=== PATIENT | male | born 2000 | race Caucasian/White ===

== ENCOUNTER 2019-01-04 13:29 | Emergency (ER) | payer OTHER, MEDICAID, SELFPAY ==
[2019-01-04 13:40] VITALS: BP 122/58; PULSE 74; RESP 13; TEMP 37.1; O2SAT 98
--- NOTE | 2019-01-04 13:51 | DI.RAD.S_ITS ---
PROCEDURE: XR CHEST 2V INDICATIONS: short of breath/chest pressure TECHNIQUE: 2 views of the chest were acquired. COMPARISON: None. FINDINGS: Surgical changes and devices: None. Lungs and pleura: Lungs are clear. No pleural effusions or pneumothorax. Mediastinum: Mediastinal contours are normal. Heart size is normal. Bones and chest wall: No suspicious bony abnormalities. Soft tissues appear unremarkable. IMPRESSION: No acute disease. Dictated by: Jose Nowak M.D. on 01/04/2019 at 14:28 Approved by: Jose Nowak M.D. on 01/04/2019 at 14:29
[2019-01-04 14:18] LABS: Influenza A and B by PCR Rapid Negative (Negative)
--- NOTE | 2019-01-04 14:18 | ED.URI ---
HPI - URI/Sore Throat General Chief Complaint: Upper Respiratory Symptoms Stated Complaint: CHEST PAIN COUGH Time Seen by Provider: 01/04/19 14:17 Source: patient Mode of arrival: Ambulatory Limitations: no limitations History of Present Illness HPI Narrative: This a 18-year-old male who comes in with complaint of chest pain and cough patient states that been going on for 2 or 3 weeks. He has noted he has had sort of decreased stamina as well when he skateboarding. And that sometimes when he is talking he feels sort of short of breath. Patient states it feels like bili sort of stuck in his chest like it went down did not quite make it all the way to his stomach he states he will notice heart rate seems to kind of go up until feel little short of breath with it. States it can last anywhere from 1-2 minutes to 10 minutes. States Thursday and sort of a much longer episode. He denies any clear exacerbating symptoms. He states that deep inhalation and deep rhythmic breathing seems to help. He has noticed that stretching before skateboarding, taking very deep breaths sometimes seems to make it worse. He denies syncope or lightheadedness, he has had a cough occasionally but nonproductive. Denies any nasal congestion or respiratory congestion. Denies any nausea, no vomiting. No diarrhea or constipation. No swelling in his lower extremities. States sometimes it kind of feels like it goes up towards his neck. States he did have an episode in 10th grade or he would have these episodes of difficulty breathing and would almost vomit but they felt a little bit different. He states that they resolved and they never found the exact cause. Denies other past medical history, denies any prior surgeries. Father and grandfather have had pancreatitis, no history of heart attacks, blood clots or similar type issues. No tobacco, he does tab marijuana, denies alcohol. Related Data Previous Rx's Medication Instructions Recorded gemfibrozil 600 mg PO BID #60 tab 01/04/19 Review of Systems Review of Systems ROS Unobtainable: All systems reviewed & are unremarkable except as noted in HPI and below Constitutional Constitutional: Denies chills, Reports fatigue, Denies fever(s), Denies lethargy and Denies weakness Cardiovascular Cardiovascular: Reports chest pain, Denies chest pain with activity, Denies diaphoresis, Denies syncope, Reports rapid heart rate, Denies edema, Denies irregular heart rhythm, Denies lightheadedness, Reports radiating jaw, neck or arm pain (Kind of to neck), Denies palpitations, Reports dyspnea, Denies dyspnea on exertion and Denies orthopnea Respiratory Respiratory: Denies change in phlegm color, Denies chest congestion, Reports cough, Denies hemoptysis, Denies excessive phlegm production, Denies pain on inspiration, Denies pain with cough, Reports dyspnea, Denies dyspnea on exertion, Denies stridor and Denies wheezing Gastrointestinal Gastrointestinal: Denies abdominal pain, Denies melena, Denies hematochezia, Denies change in bowel habits, Denies constipation, Denies diarrhea, Denies nausea and Denies vomiting Genitourinary Genitourinary: Denies hematuria, Denies difficulty urinating, Denies dysuria, Denies flank pain, Denies urinary frequency, Denies urinary incontinence and Denies urinary urgency Musculoskeletal Musculoskeletal: Denies back pain Integumentary/Breasts Skin/Breast: Denies rash Neurologic Neurologic: Denies syncope and Denies weakness Endocrine Endocrine: Reports fatigue and Denies palpitations Allergic/Immunologic Allergic/Immunologic: Denies wheezing PFSH Social History Smoking Status: Never smoker Family History (Updated 01/04/19 @ 14:38 by Beverly Price DO) Father Pancreatitis Grandfather Pancreatitis Social History (Updated 01/04/19 @ 14:38 by Beverly Price DO) Smoking Status: Never smoker alcohol intake: current substance use type: marijuana Exam Narrative Exam Narrative: GEN: well nourished, moderately obese male, alert and oriented x 3, patient appears to be in no acute distress. HEENT: Atraumatic, pupils are equal round reactive to light, extraocular movements are intact, nares are clear, TMs are clear with no fluid, there is no conjunctival pallor. Throat is clear without any exudates, erythema, tonsillar enlargement or uvular deviation HEART: Regular rate and rhythm without murmur, clicks, rubs. LUNGS:Lungs clear to auscultation, no wheezes, rales, crackles, chest moves symmetrically, no tachypnea, no accessory muscle use. ABD:bowel sounds normal, soft, non-tender, no guarding, rebound, rigidity, no masses noted, no hepatosplenomegaly, no pulsatile mass. MSCL: Non-tender, no muscle atrophy, muscles strength 5/5 upper and lower extremities, full range of motion, normal gait NEURO:CN 2-12 intact, sensation normal SKIN: no rash or skin changes, noted. Initial Vital Signs Initial Vital Signs: Vital Signs Temperature 98.7 F 01/04/19 13:40 Pulse Rate 74 01/04/19 13:40 Respiratory Rate 13 01/04/19 13:40 Blood Pressure 122/58 L 01/04/19 13:40 Pulse Oximetry 98 01/04/19 13:40 Scores HEART Score Heart Score history: Slightly Suspicious Heart Score EKG: Non-Specific repolarization disturbance Heart Score Age: < 45 years old Heart Score risk factors: No known risk factors PERC Score Age greater than or equal to 50 years: No Heart rate greater than or equal to 100 bpm: No Room Air O2 Sat less than 95%: No Unilateral leg swelling: No Recent trauma or surgery: No Hemoptysis: No Prior PE or DVT: No Hormone Use: No Total PERC Score: 0 Course Orders Ordered: ED Orders 01/04/19 13:51 Chest [XR chest 2V] Stat 01/04/19 13:55 Influenza A and B by PCR Rapid Stat 01/04/19 13:59 EKG-12 Lead Stat 01/04/19 14:59 Complete Blood Count AUTO DIFF Stat Comprehensive Metabolic Panel Stat D Dimer Stat Lipase Stat Lipid Panel Stat Partial Thromboplastin Time Stat Prothrombin Time INR Stat Troponin & CK Cardiac Panel Stat 01/04/19 15:10 Urine Drug Screen, Rapid Stat Urine Microscopic Stat Vital Signs Vital signs: Vital Signs - 8 hr 01/04/19 13:40 01/04/19 15:38 01/04/19 17:11 Temperature 98.7 F Pulse Rate 74 79 74 Respiratory Rate 13 16 14 Blood Pressure 122/58 L Blood Pressure [Left Arm] 125/73 130/64 Pulse Oximetry 98 100 100 MDM - URI/Sore Throat Lab Data Attestation: I reviewed the patient's lab results. Result diagrams: 01/04/19 14:59 01/04/19 14:59 Labs: Lab Results 01/04/19 01/04/19 01/04/19 Range/Units 13:55 14:59 14:59 WBC 9.1 (4.5-11.0) X10^3/uL RBC 5.33 (4.5-5.9) X10^6/uL Hgb 15.8 (13.5-17.5) g/dL Hct 45.2 (41-53) % MCV 84.9 (80-100) fL MCH 29.6 (26-34) PG MCHC 34.8 (30-36) % RDW 13.3 (11.6-14.8) % Plt Count 307 (150-400) X10^3/uL Neut % (Auto) 57.2 (50-75) % Lymph % (Auto) 32.9 (25-40) % [place] % (Auto) 7.5 (3-14) % Eos % (Auto) 2.0 (2-4) % Baso % (Auto) 0.4 (0-2) % Neut # (Auto) 5200 (6362-2549) /uL Lymph # (Auto) 3000 (9542-0512) /uL [place] # (Auto) 700 (0-900) /uL Eos # (Auto) 200 (0-450) /uL Baso # (Auto) 0 (0-100) /uL PT 11.4 (10.1-12.7) SECONDS INR 1.0 (0.9-1.3) APTT 33 (26.4-36.2) SECONDS D-Dimer TNP Sodium (137-145) mmol/L Potassium (3.4-5.1) mmol/L Chloride (98-107) mmol/L Carbon Dioxide (22-32) mmol/L BUN (9-20) mg/dL Creatinine (0.66-1.25) mg/dL Estimated GFR (>60) mL/min BUN/Creatinine Ratio (6-22) Glucose (70-100) mg/dL Calcium (8.4-10.2) mg/dL Total Bilirubin (0.2-1.3) mg/dL AST (17-59) IU/L ALT (21-72) IU/L Alkaline Phosphatase (38-126) U/L Total Creatine Kinase (55-170) U/L CK-MB (CK-2) CK-MB (CK-2) Rel Index Troponin I (0.01-0.034) ng/mL Total Protein (6.3-8.2) g/dL Albumin (3.5-5.0) g/dL Globulin (1.7-4.1) g/dL Albumin/Globulin Ratio (1.0-2.8) Triglycerides (35-150) mg/dL Cholesterol LDL Cholesterol, Calc HDL Cholesterol (40-60) mg/dL Lipase (23-300) U/L Urine RBC (0-5/HPF) Urine WBC (0-5/HPF) Ur Squamous Epith Cells (0-5/HPF) Amorphous Sediment Urine Bacteria (None) Ur Culture Indicated? U Morph 300 ng/mL cutoff (Negative) Ur Oxycodone Screen (Negative) Urine Methadone Screen (Negative) Ur Barbiturates Screen (Negative) U Tricyclic Antidepress (Negative) Ur Phencyclidine Scrn (Negative) Ur Amphetamines Screen (Negative) U Methamphetamines Scrn (Negative) Ur MDMA Scrn (Ecstasy) (Negative) U Benzodiazepines Scrn (Negative) Urine Cocaine Screen (Negative) U Marijuana (THC) Screen (Negative) Influenza A & B (PCR) Negative (Negative) 01/04/19 01/04/19 01/04/19 Range/Units 14:59 14:59 14:59 WBC (4.5-11.0) X10^3/uL RBC (4.5-5.9) X10^6/uL Hgb (13.5-17.5) g/dL Hct (41-53) % MCV (80-100) fL MCH (26-34) PG MCHC (30-36) % RDW (11.6-14.8) % Plt Count (150-400) X10^3/uL Neut % (Auto) (50-75) % Lymph % (Auto) (25-40) % [place] % (Auto) (3-14) % Eos % (Auto) (2-4) % Baso % (Auto) (0-2) % Neut # (Auto) (4486-0264) /uL Lymph # (Auto) (3988-0358) /uL [place] # (Auto) (0-900) /uL Eos # (Auto) (0-450) /uL Baso # (Auto) (0-100) /uL PT (10.1-12.7) SECONDS INR (0.9-1.3) APTT (26.4-36.2) SECONDS D-Dimer Sodium 140 (137-145) mmol/L Potassium 4.1 (3.4-5.1) mmol/L Chloride 101 (98-107) mmol/L Carbon Dioxide 30 (22-32) mmol/L BUN 14 (9-20) mg/dL Creatinine 0.60 L (0.66-1.25) mg/dL Estimated GFR > 60.0 (>60) mL/min BUN/Creatinine Ratio 23.3 H (6-22) Glucose 87 (70-100) mg/dL Calcium 9.5 (8.4-10.2) mg/dL Total Bilirubin 0.4 (0.2-1.3) mg/dL AST 33 (17-59) IU/L ALT 36 (21-72) IU/L Alkaline Phosphatase 87 (38-126) U/L Total Creatine Kinase 63 (55-170) U/L CK-MB (CK-2) TNP CK-MB (CK-2) Rel Index TNP Troponin I < 0.012 (0.01-0.034) ng/mL Total Protein 7.5 (6.3-8.2) g/dL Albumin 4.3 (3.5-5.0) g/dL Globulin 3.2 (1.7-4.1) g/dL Albumin/Globulin Ratio 1.3 (1.0-2.8) Triglycerides 791 H (35-150) mg/dL Cholesterol Cancelled 171 LDL Cholesterol, Calc TNP HDL Cholesterol 31 L (40-60) mg/dL Lipase 28 (23-300) U/L Urine RBC (0-5/HPF) Urine WBC (0-5/HPF) Ur Squamous Epith Cells (0-5/HPF) Amorphous Sediment Urine Bacteria (None) Ur Culture Indicated? U Morph 300 ng/mL cutoff (Negative) Ur Oxycodone Screen (Negative) Urine Methadone Screen (Negative) Ur Barbiturates Screen (Negative) U Tricyclic Antidepress (Negative) Ur Phencyclidine Scrn (Negative) Ur Amphetamines Screen (Negative) U Methamphetamines Scrn (Negative) Ur MDMA Scrn (Ecstasy) (Negative) U Benzodiazepines Scrn (Negative) Urine Cocaine Screen (Negative) U Marijuana (THC) Screen (Negative) Influenza A & B (PCR) (Negative) 01/04/19 01/04/19 Range/Units 15:10 15:10 WBC (4.5-11.0) X10^3/uL RBC (4.5-5.9) X10^6/uL Hgb (13.5-17.5) g/dL Hct (41-53) % MCV (80-100) fL MCH (26-34) PG MCHC (30-36) % RDW (11.6-14.8) % Plt Count (150-400) X10^3/uL Neut % (Auto) (50-75) % Lymph % (Auto) (25-40) % [place] % (Auto) (3-14) % Eos % (Auto) (2-4) % Baso % (Auto) (0-2) % Neut # (Auto) (8058-9995) /uL Lymph # (Auto) (1731-2133) /uL [place] # (Auto) (0-900) /uL Eos # (Auto) (0-450) /uL Baso # (Auto) (0-100) /uL PT (10.1-12.7) SECONDS INR (0.9-1.3) APTT (26.4-36.2) SECONDS D-Dimer Sodium (137-145) mmol/L Potassium (3.4-5.1) mmol/L Chloride (98-107) mmol/L Carbon Dioxide (22-32) mmol/L BUN (9-20) mg/dL Creatinine (0.66-1.25) mg/dL Estimated GFR (>60) mL/min BUN/Creatinine Ratio (6-22) Glucose (70-100) mg/dL Calcium (8.4-10.2) mg/dL Total Bilirubin (0.2-1.3) mg/dL AST (17-59) IU/L ALT (21-72) IU/L Alkaline Phosphatase (38-126) U/L Total Creatine Kinase (55-170) U/L CK-MB (CK-2) CK-MB (CK-2) Rel Index Troponin I (0.01-0.034) ng/mL Total Protein (6.3-8.2) g/dL Albumin (3.5-5.0) g/dL Globulin (1.7-4.1) g/dL Albumin/Globulin Ratio (1.0-2.8) Triglycerides (35-150) mg/dL Cholesterol LDL Cholesterol, Calc HDL Cholesterol (40-60) mg/dL Lipase (23-300) U/L Urine RBC 5-10/hpf H (0-5/HPF) Urine WBC None seen (0-5/HPF) Ur Squamous Epith Cells 0-1 /hpf (0-5/HPF) Amorphous Sediment 1+ Urine Bacteria Occasional (0-1) (None) Ur Culture Indicated? Cult not indicated U Morph 300 ng/mL cutoff Negative (Negative) Ur Oxycodone Screen Negative (Negative) Urine Methadone Screen Negative (Negative) Ur Barbiturates Screen Negative (Negative) U Tricyclic Antidepress Negative (Negative) Ur Phencyclidine Scrn Negative (Negative) Ur Amphetamines Screen Negative (Negative) U Methamphetamines Scrn Negative (Negative) Ur MDMA Scrn (Ecstasy) Negative (Negative) U Benzodiazepines Scrn Negative (Negative) Urine Cocaine Screen Negative (Negative) U Marijuana (THC) Screen Positive H (Negative) Influenza A & B (PCR) (Negative) Urine Dip Bedside Urine Glucose Negative Bedside Urine Bilirubin - Negative Bedside Urine Ketone - Negative Urine Specific [place] 1.020 Bedside Urine Occult Blood + Bedside Urine pH 6.0 Bedside Urine Protein - Negative Bedside Urine Urobilinogen - Negative Bedside Urine Nitrite - Negative Bedside Urine Leukocytes - Negative Esterase Imaging Data Chest x-ray: Radiologist's impression: [place] [address] XRay Report Signed Patient: Chiquita Ruiz TMR#: [id number] : 2000Acct:[id number] Age/Sex: 18 / MDate of Service: 01/04/19 Loc: ED Accession Number: [id number] Procedure: XR chest 2V Ordering Provider: Beverly Price D.O. PROCEDURE: XR CHEST 2V INDICATIONS: short of breath/chest pressure TECHNIQUE: 2 views of the chest were acquired. COMPARISON: None. FINDINGS: Surgical changes and devices: None. Lungs and pleura: Lungs are clear. No pleural effusions or pneumothorax. Mediastinum: Mediastinal contours are normal. Heart size is normal. Bones and chest wall: No suspicious bony abnormalities. Soft tissues appear unremarkable. IMPRESSION: No acute disease. Dictated by: Jose Nowak M.D. on 01/04/2019 at 14:28 Approved by: Jose Nowak M.D. on 01/04/2019 at 14:29 ECG Data Attestation: I personally reviewed and interpreted this ECG as follows: Prior ECG tracings: not available for review Interpretation: Sinus rhythm with a rate of 69 P are 120 QRS of 90 and QTC of 402. Patient has Q-wave in 2 [address] and AVF. No other ST changes appreciated MDM Narrative Medical decision making narrative: Patient comes in with a nonproductive, some chest pain and shortness of breath. He has not been febrile. EKG shows some nonspecific change but no clear cardiac issues, patient does not have significant cardiac pulmonary or DVT/PE family history or for himself chest x-ray was negative, influenza was negative in plan for basic lab. Patient does dab and this could be contributing to his difficulties. Patient lab was not run, could not be run, when I had discussed with patient and family he does have a history of triglyceridemia with his father and both father and grandfather had pancreatitis. Cholesterol panel was run and his triglycerides are 700. Patient discussed starting him on gemfibrozil, discussed with Internal Medicine and Cardiology. Patient does not have PCP but his grandfather's going to help him established. He was given a 30 day prescription and plan for short term follow up. We discussed at length the potential causes and secondary issues that hypertriglyceridemia can cause. Discharge Plan Departure Patient Disposition: Home Clinical Impression: Atypical chest pain, Hypertriglyceridemia Discharge Date/Time: 01/04/19 17:16 Instructions: High Triglycerides Activity Restrictions/Additional Instructions: Follow up with primary care and/or cardiology in the next several days. Call for an appointment, you may call [phone] for the human resource advisor to set up follow up. Your triglyceride level today was 791, HDL was 31 and cholesterol was 171. Start gemfibrozil 600 mg twice daily, start this medication today. You need to have your cholesterol levels followed closely. Return to the emergency department for new or worsening symptoms, fevers than 100.4 F, new abdominal pain, chest, shortness of breath, lightheadedness, passing out, persistent vomiting, black or bloody stools or other new or concerning symptoms. Prescriptions: New gemfibrozil 600 mg tablet 600 mg PO BID Qty: 60 RF: 0 Referrals: Saul Dela Cruz MD [Physician] -
[2019-01-04 15:05] LABS: Add Manual Diff / Slide Review NO; Basophils Absolute Auto 0 /uL (0-100); Basophils Percent Auto 0.4 % (0-2); Eosinophils Absolute Auto 200 /uL (0-450); Hematocrit 45.2 % (41-53); Hemoglobin 15.8 g/dL (13.5-17.5); Lymphocytes Absolute Auto 3000 /uL (1100-4500); Lymphocytes Percent Auto 32.9 % (25-40); Mean Corpuscular HGB Conc 34.8 % (30-36); Mean Corpuscular Hemoglobin 29.6 PG (26-34); Mean Corpuscular Volume 84.9 fL (80-100); Monocytes Absolute Auto 700 /uL (0-900); Monocytes Percent Auto 7.5 % (3-14); Neutrophils Absolute Auto 5200 /uL (1500-7000); Neutrophils Percent Auto 57.2 % (50-75); Platelet Count 307 X10^3/uL (150-400); Red Blood Cell Count 5.33 X10^6/uL (4.5-5.9); Red Cell Distribution Width 13.3 % (11.6-14.8); White Blood Cell Count 9.1 X10^3/uL (4.5-11.0)
[2019-01-04 15:13] LABS: Prothrombin Time 11.4 SECONDS (10.1-12.7)
[2019-01-04 15:15] LABS: PTT Partial Thromboplastin Tim 33 SECONDS (26.4-36.2)
[2019-01-04 15:17] LABS: Alanine Aminotransferase 36 IU/L (21-72); Albumin 4.3 g/dL (3.5-5.0); Albumin Globulin Ratio 1.3 (1.0-2.8); Alkaline Phosphatase 87 U/L (38-126); Aspartate Aminotransferase 33 IU/L (17-59); BUN Creatinine Ratio 23.3 (6-22); Bilirubin Total 0.4 mg/dL (0.2-1.3); Blood Urea Nitrogen 14 mg/dL (9-20); Calcium 9.5 mg/dL (8.4-10.2); Carbon Dioxide 30 mmol/L (22-32); Chloride 101 mmol/L (98-107); Creatine Kinase 63 U/L (55-170); Estimated Glomerular Filt Rate > 60.0 mL/min (>60); Globulin 3.2 g/dL (1.7-4.1); Glucose 87 mg/dL (70-100); HEMOLYSIS 27 (0-50); Lipase 28 U/L (23-300); Potassium 4.1 mmol/L (3.4-5.1); Sodium 140 mmol/L (137-145); Total Protein 7.5 g/dL (6.3-8.2)
[2019-01-04 15:22] LABS: WBC Urine None Seen (0-5/HPF)
[2019-01-04 15:29] LABS: Troponin I < 0.012 ng/mL (0.01-0.034)
[2019-01-04 15:30] LABS: Amorphous Sediment Urine 1+; Bacteria Urine Occasional (0-1); Culture Indicated Urine Cult Not Indicated; RBC Urine 5-10/HPF (0-5/HPF); Squamous Epithelial Cell Urine 0-1 /HPF (0-5/HPF)
[2019-01-04 15:36] LABS: UR Morphine/Opiate cutoff 300 Negative (Negative); Ur Creatinine Normal (Normal); Ur Specific Gravity Normal (Normal); Urine Amphetamines Negative (Negative); Urine Barbiturates Negative (Negative); Urine Benzodiazepines Negative (Negative); Urine Cocaine Negative (Negative); Urine MDMA Negative (Negative); Urine Methadone Negative (Negative); Urine Methamphetamines Negative (Negative); Urine Oxycodone Negative (Negative); Urine Phencyclidine Negative (Negative); Urine Tetrahydrocannabinol Positive (Negative); Urine Tricyclic Antidepressant Negative (Negative); Urine pH Normal (Normal)
[2019-01-04 15:38] VITALS: BP 125/73; PULSE 79; RESP 16; O2SAT 100
[2019-01-04 16:21] LABS: Cholesterol 171 mg/dL (140-199)
[2019-01-04 16:29] LABS: HDL Cholesterol 31 mg/dL (40-60)
[2019-01-04 16:37] LABS: Triglycerides 791 mg/dL (35-150)
[2019-01-04 17:11] VITALS: BP 130/64; PULSE 74; RESP 14; O2SAT 100
== END 2019-01-04 17:16 | disposition home or self-care (01) ==
PROVIDERS: Emergency Provider Emergency Medicine
DX: R07.89 Other chest pain (principal); E78.1 Pure hyperglyceridemia; R06.02 Shortness of breath
CPT/HCPCS: 36415; 71046; 80053; 80061; 80305; 81003; 81015; 82550; 83690; 84484; 85025; 85610; 85730; 87400; 87502; 93005; 99282; 99285

== ENCOUNTER 2022-11-26 16:17 | Emergency (ER) | payer OTHER, SELFPAY ==
[2022-11-26 16:22] VITALS: BP 137/78; PULSE 87; RESP 18; TEMP 37.4; O2SAT 99; BMI 23.7
[2022-11-26] MEDS: ONDANSETRON 4 MG/2 ML INJ IV (16:53)
[2022-11-26 17:20] LABS: Alanine Aminotransferase 29 IU/L (<50); Albumin 4.6 g/dL (3.5-5.0); Albumin Globulin Ratio 1.5 (1.0-2.8); Alkaline Phosphatase 57 U/L (38-126); Aspartate Aminotransferase 35 IU/L (17-59); BUN Creatinine Ratio 17.7 (6-22); Bilirubin Total 0.5 mg/dL (0.2-1.3); Blood Urea Nitrogen 11 mg/dL (9-20); Calcium 9.3 mg/dL (8.4-10.2); Carbon Dioxide 27 mmol/L (22-32); Chloride 104 mmol/L (98-107); Estimated Glomerular Filt Rate > 60 mL/min (>60); Globulin 3.1 g/dL (1.7-4.1); Glucose 87 mg/dL (70-100); Lipase 27 U/L (23-300); Potassium 4.3 mmol/L (3.4-5.1); Sodium 139 mmol/L (137-145); Total Protein 7.7 g/dL (6.3-8.2)
[2022-11-26 17:20] LABS: Influenza A - CEPHEID Flu A NEGATIVE (NEGATIVE); Influenza B - CEPHEID Flu B NEGATIVE (NEGATIVE); Respiratory Syncytial Virus Negative (Negative)
[2022-11-26 17:21] LABS: HEMOLYSIS 53 (0-50)
[2022-11-26 17:21] LABS: COVID-19 CEPHEID 4-PLEX PCR Negative (Negative)
[2022-11-26 17:26] LABS: Add Manual Diff / Slide Review NO; Basophils Absolute Auto 0 /uL (0-100); Basophils Percent Auto 0.5 % (0-2); Eosinophils Absolute Auto 100 /uL (0-450); Eosinophils Percent Auto 1.7 % (2-4); Hematocrit 45.8 % (41-53); Hemoglobin 15.8 g/dL (13.5-17.5); Lymphocytes Absolute Auto 1900 /uL (1100-4500); Lymphocytes Percent Auto 22.6 % (25-40); Mean Corpuscular HGB Conc 34.5 % (30-36); Mean Corpuscular Hemoglobin 29.9 PG (26-34); Mean Corpuscular Volume 86.6 fL (80-100); Monocytes Absolute Auto 500 /uL (0-900); Monocytes Percent Auto 6.3 % (3-14); Neutrophils Absolute Auto 5800 /uL (1500-7000); Neutrophils Percent Auto 68.9 % (50-75); Platelet Count 266 X10^3/uL (150-400); Red Blood Cell Count 5.29 X10^6/uL (4.5-5.9); Red Cell Distribution Width 13.3 % (11.6-14.8); White Blood Cell Count 8.4 X10^3/uL (4.5-11.0)
[2022-11-26 17:51] LABS: TSH w/ Reflex to FT4 2.22 uIU/mL (0.47-4.68)
--- NOTE | 2022-11-26 18:12 | PC.NURSE ---
pt c/o abd pain and cramping. pt eating flaming hot cheetos in waiting area. ambulated to rm 2 without difficulty.
--- NOTE | 2022-11-26 18:15 | ED_ITS ---
HPI - General Adult <Monica Finch PA-C - Last Filed: 11/26/22 18:50> General Chief complaint: Abdominal Pain Stated complaint: Respiratory issues, Fever Time Seen by Provider: 11/26/22 18:13 Source: patient Mode of arrival: Ambulatory History of Present Illness HPI narrative: Patient is a 22-year-old male who presents with multiple complaints. -He reports several days of a migraine headache that feels fuzzy, he sometimes feels off balance. He reports a history of migraines since he was 7 years old. He suspects that often his migraines are related to needing glasses, which he is not been able to afford. This migraine headache is not associated with any vision changes, tinnitus but he does endorse nausea. He is tried taking Excedrin and ibuprofen without much relief. -he is currently undergoing evaluation for thyroid tumors at [facility]. He thinks this may be impacting how he feels. He would like us to check labs today. -he has a left lower dental abscess that is somewhat chronic. He saw a dentist about 2 months ago and was prescribed antibiotics, after which time the dental pain was better. A couple of days ago it started to hurt again and the pain radiates up into his head, possibly contributing to his migraines. He started taking antibiotics yesterday for this abscess, shows me a picture of a bottle that reads erythromycin base that he was previously prescribed by a dentist. He reports having a full bottle of these pills. He is not had the money to do the dental extraction that he needs. He denies fever or chills. -he describes having a dry congestion but right now is having a runny nose after his COVID test. He denies cough, shortness of breath, chest pain, sore throat. Related Data Previous Rx's Medication Instructions Recorded gemfibrozil 600 mg tablet 600 mg PO BID #60 tabs 01/04/19 Allergies Allergy/AdvReac Type Severity Reaction Status Date / Time Penicillins Allergy Anaphylaxis Verified 11/26/22 16:22 Review of Systems <Monica Finch PA-C - Last Filed: 11/26/22 18:50> Review of Systems ROS Unobtainable: All systems reviewed & are unremarkable except as noted in HPI and below Patient History <Monica Finch PA-C - Last Filed: 11/26/22 18:50> Family History Father Pancreatitis Grandfather Pancreatitis Social History Smoking Status: Never smoker alcohol intake: current substance use type: marijuana Smoking Status: Never smoker Substance Use Type: marijuana Exam <Monica Finch PA-C - Last Filed: 11/26/22 18:50> Narrative Exam Narrative: GENERAL: 22 year old patient appears stated age. Well-developed patient, in no distress. Just finished eating a bag of spicy Cheetos. NEURO: AOx3. Cranial nerves II-VII grossly intact, no pronator drift. HEAD: Atraumatic. Normocephalic. EYES: Pupils equal round and reactive. Extraocular motions intact. No scleral icterus. No injection or drainage. ENT: Nose without bleeding or purulent drainage. Throat with mild erythema, no tonsillar hypertrophy or exudate. Increased airway noises coming from his nose. Left lower molar visible neri, no visible abscess, tender to palpation. NECK: Trachea midline. Non tender CARDIOVASCULAR: Regular rate and rhythm without murmurs, gallops, or rubs. RESPIRATORY: Clear to auscultation. Breath sounds equal bilaterally. No wheezes, rales, or rhonchi. EXTREMITIES: No edema or joint tenderness. SKIN: No rash or erythema of visible areas Initial Vital Signs Initial Vital Signs: Vital Signs Temperature 99.3 F 11/26/22 16:22 Pulse Rate 87 11/26/22 16:22 Respiratory Rate 18 11/26/22 16:22 Blood Pressure 137/78 11/26/22 16:22 Pulse Oximetry 99 11/26/22 16:22 Oxygen Delivery Method Room Air 11/26/22 16:22 <Alverto Paul DO - Last Filed: 11/26/22 22:27> Initial Vital Signs Initial Vital Signs: Vital Signs Temperature 99.3 F 11/26/22 16:22 Pulse Rate 87 11/26/22 16:22 Respiratory Rate 18 11/26/22 16:22 Blood Pressure 137/78 11/26/22 16:22 Pulse Oximetry 99 11/26/22 16:22 Oxygen Delivery Method Room Air 11/26/22 16:22 Course <Monica Finch PA-C - Last Filed: 11/26/22 18:50> Orders Ordered: ED Orders 11/26/22 16:35 Covid-19 + FLU A/B + RSV - PCR Stat 11/26/22 16:45 Complete Blood Count AUTO DIFF Stat Comprehensive Metabolic Panel Stat Lipase Stat TSH w/ Reflex to FT4 Stat 11/26/22 19:01 Free T4, Direct Thyroxine Stat Thyroid Stimulating Hormone Stat Discontinued Medications Diphenhydramine HCl (Diphenhydramine 50 Mg/Ml Vial) 25 mg IV NOW ONE Stop: 11/26/22 18:26 Last Admin: 11/26/22 18:42 Dose: 25 mg Documented By: ESPINOZA Sodium Chloride (Normal Saline 0.9%) 1,000 mls @ 1,000 mls/hr IV BOLUS ONE Stop: 11/26/22 19:24 Last Infusion: 11/26/22 19:33 Dose: 0 mls/hr Documented By: Admin: 11/26/22 18:41 Dose: 1,000 mls/hr Documented By: ESPINOZA Ketorolac Tromethamine (Ketorolac 30 Mg/Ml Vial) 15 mg IV NOW ONE Stop: 11/26/22 18:26 Last Admin: 11/26/22 18:41 Dose: 15 mg Documented By: ESPINOZA Metoclopramide HCl (Metoclopramide 10 Mg/2 Ml Inj) 10 mg IV NOW ONE Stop: 11/26/22 18:26 Last Admin: 11/26/22 18:43 Dose: 10 mg Documented By: ESPINOZA Ondansetron HCl (Ondansetron 4 Mg Odt) 4 mg PO NOW PRN PRN Reason: Nausea And Vomiting Ondansetron HCl (Ondansetron 4 Mg/2 Ml Inj) 4 mg IV NOW PRN PRN Reason: Nausea And Vomiting Last Admin: 11/26/22 16:53 Dose: 4 mg Documented By: KARLI Oxycodone/Acetaminophen (Oxycodone/Apap 5/325 Prepack) 1 bottle MISC SEEINSTR ONE Stop: 11/26/22 20:27 Last Admin: 11/26/22 20:30 Dose: 1 bottle Documented By: ESPINOZA Vital Signs Vital signs: Vital Signs - 8 hr 11/26/22 16:22 11/26/22 18:41 11/26/22 18:48 Temperature 99.3 F Pulse Rate 87 54 L Respiratory Rate 18 16 Blood Pressure 137/78 123/74 123/74 Pulse Oximetry 99 98 Oxygen Delivery Method Room Air 11/26/22 18:48 11/26/22 19:00 11/26/22 19:00 Temperature Pulse Rate 73 77 Respiratory Rate Blood Pressure 122/77 Pulse Oximetry 100 99 Oxygen Delivery Method 11/26/22 19:30 11/26/22 19:30 11/26/22 20:00 Temperature Pulse Rate 57 L Respiratory Rate 16 Blood Pressure 120/72 Pulse Oximetry 100 100 Oxygen Delivery Method <Alverto Paul DO - Last Filed: 11/26/22 22:27> Orders Ordered: ED Orders 11/26/22 16:35 Covid-19 + FLU A/B + RSV - PCR Stat 11/26/22 16:45 Complete Blood Count AUTO DIFF Stat Comprehensive Metabolic Panel Stat Lipase Stat TSH w/ Reflex to FT4 Stat 11/26/22 19:01 Free T4, Direct Thyroxine Stat Thyroid Stimulating Hormone Stat Discontinued Medications Diphenhydramine HCl (Diphenhydramine 50 Mg/Ml Vial) 25 mg IV NOW ONE Stop: 11/26/22 18:26 Last Admin: 11/26/22 18:42 Dose: 25 mg Documented By: ESPINOZA Sodium Chloride (Normal Saline 0.9%) 1,000 mls @ 1,000 mls/hr IV BOLUS ONE Stop: 11/26/22 19:24 Last Infusion: 11/26/22 19:33 Dose: 0 mls/hr Documented By: Admin: 11/26/22 18:41 Dose: 1,000 mls/hr Documented By: ESPINOZA Ketorolac Tromethamine (Ketorolac 30 Mg/Ml Vial) 15 mg IV NOW ONE Stop: 11/26/22 18:26 Last Admin: 11/26/22 18:41 Dose: 15 mg Documented By: ESPINOZA Metoclopramide HCl (Metoclopramide 10 Mg/2 Ml Inj) 10 mg IV NOW ONE Stop: 11/26/22 18:26 Last Admin: 11/26/22 18:43 Dose: 10 mg Documented By: ESPINOZA Ondansetron HCl (Ondansetron 4 Mg Odt) 4 mg PO NOW PRN PRN Reason: Nausea And Vomiting Ondansetron HCl (Ondansetron 4 Mg/2 Ml Inj) 4 mg IV NOW PRN PRN Reason: Nausea And Vomiting Last Admin: 11/26/22 16:53 Dose: 4 mg Documented By: KARLI Oxycodone/Acetaminophen (Oxycodone/Apap 5/325 Prepack) 1 bottle MISC SEEINSTR ONE Stop: 11/26/22 20:27 Last Admin: 11/26/22 20:30 Dose: 1 bottle Documented By: [facility] Vital Signs Vital signs: Vital Signs - 8 hr 11/26/22 16:22 11/26/22 18:41 11/26/22 18:48 Temperature 99.3 F Pulse Rate 87 54 L Respiratory Rate 18 16 Blood Pressure 137/78 123/74 123/74 Pulse Oximetry 99 98 Oxygen Delivery Method Room Air 11/26/22 18:48 11/26/22 19:00 11/26/22 19:00 Temperature Pulse Rate 73 77 Respiratory Rate Blood Pressure 122/77 Pulse Oximetry 100 99 Oxygen Delivery Method 11/26/22 19:30 11/26/22 19:30 11/26/22 20:00 Temperature Pulse Rate 57 L Respiratory Rate 16 Blood Pressure 120/72 Pulse Oximetry 100 100 Oxygen Delivery Method Medical Decision Making <Monica Finch PA-C - Last Filed: 11/26/22 18:50> Lab Data 11/26/22 16:45 11/26/22 16:45 Labs: Lab Results 11/26/22 11/26/22 11/26/22 Range/Units 16:35 16:45 16:45 WBC 8.4 (4.5-11.0) X10^3/uL RBC 5.29 (4.5-5.9) X10^6/uL Hgb 15.8 (13.5-17.5) g/dL Hct 45.8 (41-53) % MCV 86.6 (80-100) fL MCH 29.9 (26-34) PG MCHC 34.5 (30-36) % RDW 13.3 (11.6-14.8) % Plt Count 266 (150-400) X10^3/uL Neut % (Auto) 68.9 (50-75) % Lymph % (Auto) 22.6 L (25-40) % [place] % (Auto) 6.3 (3-14) % Eos % (Auto) 1.7 L (2-4) % Baso % (Auto) 0.5 (0-2) % Neut # (Auto) 5800 (5419-6818) /uL Lymph # (Auto) 1900 (6288-8842) /uL [place] # (Auto) 500 (0-900) /uL Eos # (Auto) 100 (0-450) /uL Baso # (Auto) 0 (0-100) /uL Sodium 139 (137-145) mmol/L Potassium 4.3 (3.4-5.1) mmol/L Chloride 104 (98-107) mmol/L Carbon Dioxide 27 (22-32) mmol/L BUN 11 (9-20) mg/dL Creatinine 0.62 L (0.66-1.25) mg/dL Estimated GFR > 60 (>60) mL/min BUN/Creatinine Ratio 17.7 (6-22) Glucose 87 (70-100) mg/dL Calcium 9.3 (8.4-10.2) mg/dL Total Bilirubin 0.5 (0.2-1.3) mg/dL AST 35 (17-59) IU/L ALT 29 (<50) IU/L Alkaline Phosphatase 57 (38-126) U/L Total Protein 7.7 (6.3-8.2) g/dL Albumin 4.6 (3.5-5.0) g/dL Globulin 3.1 (1.7-4.1) g/dL Albumin/Globulin Ratio 1.5 (1.0-2.8) Lipase 27 (23-300) U/L TSH (0.47-4.68) uIU/mL Free T4 (0.78-2.19) ng/dL SARS-CoV-2 (PCR) Negative (Negative) Influenza A (RT-PCR) Flu a negative (NEGATIVE) Influenza B (RT-PCR) Flu b negative (NEGATIVE) RSV (PCR) Negative (Negative) 11/26/22 11/26/22 Range/Units 16:45 19:01 WBC (4.5-11.0) X10^3/uL RBC (4.5-5.9) X10^6/uL Hgb (13.5-17.5) g/dL Hct (41-53) % MCV (80-100) fL MCH (26-34) PG MCHC (30-36) % RDW (11.6-14.8) % Plt Count (150-400) X10^3/uL Neut % (Auto) (50-75) % Lymph % (Auto) (25-40) % [place] % (Auto) (3-14) % Eos % (Auto) (2-4) % Baso % (Auto) (0-2) % Neut # (Auto) (0234-6837) /uL Lymph # (Auto) (2560-1427) /uL [place] # (Auto) (0-900) /uL Eos # (Auto) (0-450) /uL Baso # (Auto) (0-100) /uL Sodium (137-145) mmol/L Potassium (3.4-5.1) mmol/L Chloride (98-107) mmol/L Carbon Dioxide (22-32) mmol/L BUN (9-20) mg/dL Creatinine (0.66-1.25) mg/dL Estimated GFR (>60) mL/min BUN/Creatinine Ratio (6-22) Glucose (70-100) mg/dL Calcium (8.4-10.2) mg/dL Total Bilirubin (0.2-1.3) mg/dL AST (17-59) IU/L ALT (<50) IU/L Alkaline Phosphatase (38-126) U/L Total Protein (6.3-8.2) g/dL Albumin (3.5-5.0) g/dL Globulin (1.7-4.1) g/dL Albumin/Globulin Ratio (1.0-2.8) Lipase (23-300) U/L TSH 2.22 2.24 (0.47-4.68) uIU/mL Free T4 0.98 (0.78-2.19) ng/dL SARS-CoV-2 (PCR) (Negative) Influenza A (RT-PCR) (NEGATIVE) Influenza B (RT-PCR) (NEGATIVE) RSV (PCR) (Negative) MDM Narrative Medical decision making narrative: Multiple etiologies for patient's symptoms considered including, but not limited to: Viral infection, COVID/flu, migraine versus tension headache, dental infection. Labs reviewed and interpreted by myself: Labs without clinically significant abnormality, TSH normal. RSV, COVID, flu negative. Patient is not ill in appearance, vital signs normal for age. Patient's chief complaint is dental pain and migraine headache. We will give 1 L NS, metoclopramide, diphenhydramine, ketorolac for migraine treatment and also to a ddress dental pain. Will reassess after this therapy. Patient has prescription for antibiotic given to him by dentist; advised to continue this and contact dentist to let them know the infection is reoccurring and schedule appointment. Additional Information: Patient signed out to Dr. Paul at the end of my shift; he will continue care and provide reassessment and further management. <Alverto Paul, DO - Last Filed: 11/26/22 22:27> Lab Data Labs: Lab Results 11/26/22 11/26/22 11/26/22 Range/Units 16:35 16:45 16:45 WBC 8.4 (4.5-11.0) X10^3/uL RBC 5.29 (4.5-5.9) X10^6/uL Hgb 15.8 (13.5-17.5) g/dL Hct 45.8 (41-53) % MCV 86.6 (80-100) fL MCH 29.9 (26-34) PG MCHC 34.5 (30-36) % RDW 13.3 (11.6-14.8) % Plt Count 266 (150-400) X10^3/uL Neut % (Auto) 68.9 (50-75) % Lymph % (Auto) 22.6 L (25-40) % [place] % (Auto) 6.3 (3-14) % Eos % (Auto) 1.7 L (2-4) % Baso % (Auto) 0.5 (0-2) % Neut # (Auto) 5800 (4368-1559) /uL Lymph # (Auto) 1900 (0282-7502) /uL [place] # (Auto) 500 (0-900) /uL Eos # (Auto) 100 (0-450) /uL Baso # (Auto) 0 (0-100) /uL Sodium 139 (137-145) mmol/L Potassium 4.3 (3.4-5.1) mmol/L Chloride 104 (98-107) mmol/L Carbon Dioxide 27 (22-32) mmol/L BUN 11 (9-20) mg/dL Creatinine 0.62 L (0.66-1.25) mg/dL Estimated GFR > 60 (>60) mL/min BUN/Creatinine Ratio 17.7 (6-22) Glucose 87 (70-100) mg/dL Calcium 9.3 (8.4-10.2) mg/dL Total Bilirubin 0.5 (0.2-1.3) mg/dL AST 35 (17-59) IU/L ALT 29 (<50) IU/L Alkaline Phosphatase 57 (38-126) U/L Total Protein 7.7 (6.3-8.2) g/dL Albumin 4.6 (3.5-5.0) g/dL Globulin 3.1 (1.7-4.1) g/dL Albumin/Globulin Ratio 1.5 (1.0-2.8) Lipase 27 (23-300) U/L TSH (0.47-4.68) uIU/mL Free T4 (0.78-2.19) ng/dL SARS-CoV-2 (PCR) Negative (Negative) Influenza A (RT-PCR) Flu a negative (NEGATIVE) Influenza B (RT-PCR) Flu b negative (NEGATIVE) RSV (PCR) Negative (Negative) 11/26/22 11/26/22 Range/Units 16:45 19:01 WBC (4.5-11.0) X10^3/uL RBC (4.5-5.9) X10^6/uL Hgb (13.5-17.5) g/dL Hct (41-53) % MCV (80-100) fL MCH (26-34) PG MCHC (30-36) % RDW (11.6-14.8) % Plt Count (150-400) X10^3/uL Neut % (Auto) (50-75) % Lymph % (Auto) (25-40) % [place] % (Auto) (3-14) % Eos % (Auto) (2-4) % Baso % (Auto) (0-2) % Neut # (Auto) (8483-8582) /uL Lymph # (Auto) (9334-8857) /uL [place] # (Auto) (0-900) /uL Eos # (Auto) (0-450) /uL Baso # (Auto) (0-100) /uL Sodium (137-145) mmol/L Potassium (3.4-5.1) mmol/L Chloride (98-107) mmol/L Carbon Dioxide (22-32) mmol/L BUN (9-20) mg/dL Creatinine (0.66-1.25) mg/dL Estimated GFR (>60) mL/min BUN/Creatinine Ratio (6-22) Glucose (70-100) mg/dL Calcium (8.4-10.2) mg/dL Total Bilirubin (0.2-1.3) mg/dL AST (17-59) IU/L ALT (<50) IU/L Alkaline Phosphatase (38-126) U/L Total Protein (6.3-8.2) g/dL Albumin (3.5-5.0) g/dL Globulin (1.7-4.1) g/dL Albumin/Globulin Ratio (1.0-2.8) Lipase (23-300) U/L TSH 2.22 2.24 (0.47-4.68) uIU/mL Free T4 0.98 (0.78-2.19) ng/dL SARS-CoV-2 (PCR) (Negative) Influenza A (RT-PCR) (NEGATIVE) Influenza B (RT-PCR) (NEGATIVE) RSV (PCR) (Negative) MDM Narrative Medical decision making narrative: Multiple etiologies for patient's symptoms considered including, but not limited to: Viral infection, COVID/flu, migraine versus tension headache, dental infection. Labs reviewed and interpreted by myself: Labs without clinically significant abnormality, TSH normal. RSV, COVID, flu negative. Patient is not ill in appearance, vital signs normal for age. Patient's chief complaint is dental pain and migraine headache. We will give 1 L NS, metoclopra mide, diphenhydramine, ketorolac for migraine treatment and also to address dental pain. Will reassess after this therapy. Patient has prescription for antibiotic given to him by dentist; advised to continue this and contact dentist to let them know the infection is reoccurring and schedule appointment. Dr Paul: Received turned over. Number patient's history and physical and labs up to this point. He states that he feels much better after medications were provided here in the ER. His labs are unremarkable. He states he has had issues with his thyroid when he returns back home to [place] he was going to follow-up with a primary doctor. Will discharge patient home with return prec autions. He expressed understanding and agreement. Discharge Plan Departure Patient Disposition: Home Clinical Impression: Headache Instructions: DI for Headache Activity Restrictions/Additional Instructions: Recommend that you continue to take all of your medications as directed and when you return home you do need follow-up for the abnormal findings with regard your thyroid. Return to the emergency department for new or worsening symptoms. Prescriptions: No Action gemfibrozil 600 mg tablet 600 mg PO BID Qty: 60 0RF Stand Alone Forms: Patient Portal/API
[2022-11-26 18:41] VITALS: BP 123/74; PULSE 54; RESP 16; O2SAT 98
[2022-11-26] MEDS: KETOROLAC 30 MG/ML VIAL 15 MG IV (18:41)
[2022-11-26] MEDS: SODIUM CHLORIDE 0.9% 1,000 ML 1000 ML IV (18:41)
[2022-11-26] MEDS: diphenhydrAMINE 50 MG/ML VIAL 25 MG IV (18:42)
[2022-11-26] MEDS: METOCLOPRAMIDE 10 MG/2 ML INJ IV (18:43)
[2022-11-26 18:48] VITALS: BP 123/74; PULSE 73; O2SAT 100
[2022-11-26 19:00] VITALS: BP 122/77; PULSE 77; O2SAT 99
[2022-11-26 19:25] LABS: Free T4, Direct Thyroxine 0.98 ng/dL (0.78-2.19)
[2022-11-26 19:30] VITALS: BP 120/72; PULSE 57; O2SAT 100
[2022-11-26 20:00] VITALS: RESP 16; O2SAT 100
[2022-11-26 20:16] LABS: Thyroid Stimulating Hormone 2.24 uIU/mL (0.47-4.68)
[2022-11-26] MEDS: OXYCODONE/APAP 5/325 PREPACK 1 BOTTLE MISC (20:30)
== END 2022-11-26 20:35 | disposition home or self-care (01) ==
PROVIDERS: Emergency Medicine; Physician Assistant; Emergency Provider Emergency Medicine
DX: R51.9 Headache, unspecified (principal); R10.9 Unspecified abdominal pain; Z20.822 Contact with and (suspected) exposure to COVID-19
CPT/HCPCS: 0241U; 36415; 80053; 83690; 84439; 84443; 85025; 96361; 96374; 96375; 99284; J1200; J1885; J2405; J2765